=== PATIENT | male | born 2000 | race Caucasian/White ===

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

== ENCOUNTER 2021-09-18 09:14 | Emergency (ER) | payer OTHER ==
[~2021-09-18] VITALS: Ht 167.6 cm; Wt 72.7 kg
[2021-09-18 11:00] LABS: APPEARANCE,URINE CLEAR (CLEAR); BILIRUBIN,URINE NEGATIVE (NEGATIVE); GLUCOSE, URINE (UA) NEGATIVE (NEGATIVE); KETONES,URINE TRACE mg/dL (NEGATIVE); LEUKOCYTE ESTERASE ,URINE NEGATIVE (NEGATIVE); NITRATE,URINE NEGATIVE (NEGATIVE); OCCULT BLOOD,URINE NEGATIVE (NEGATIVE); PH,URINE 6.5 (5.0-8.0); PROTEIN,URINE NEGATIVE (NEGATIVE); UROBILINOGEN,URINE 0.2 mg/dL (<=1.0)
[2021-09-18 11:10] LABS: BACTERIA,URINE None Seen /HPF (None Seen); RBC,URINE None Seen /HPF (0-2); SQUAMOUS EPITHELIAL CELL,UR Few /LPF (None Seen); WBC,URINE 0-2 /HPF (0-5)
[2021-09-18 12:03] VITALS: BP 112/65
== END 2021-09-18 12:06 | disposition home or self-care (01) ==
LOC: EMS 09:14
DX: R30.0 Dysuria (principal)
CPT/HCPCS: 81001; 87491; 87591; 99283

== ENCOUNTER 2021-09-22 15:42 | Emergency (ER) | payer OTHER ==
[~2021-09-22] VITALS: Ht 157.5 cm; Wt 59.1 kg
[2021-09-22 15:51] VITALS: BP 125/58
[2021-09-22] MEDS ORDERED: CefTRIAXone SODIUM 1 GM/VIAL IM ONE (16:00)
[2021-09-22] MEDS ORDERED: AZITHROMYCIN 500 MG TABLET PO ONE (16:00)
[2021-09-22] MEDS ORDERED: LIDOCAINE/PF 1% 2 ML VIAL IM ONE (16:00)
== END 2021-09-22 16:40 | disposition home or self-care (01) ==
LOC: EMS 15:42
DX: A56.01 Chlamydial cystitis and urethritis (principal); F12.90 Cannabis use, unspecified, uncomplicated
CPT/HCPCS: 96372; 99283; J0696; J3490; Q9967